=== PATIENT | female | born 1945 | race Hispanic/Latino ===

== ENCOUNTER → 2018-09-21 | Day surgery (SDC) | payer OTHER ==
[~2018-09-21] MED LIST: Iodixanol 320 MG/ML 200 ML BOTTLE IV ONE; Labetalol 5mg/ml (4ml) ONE; Midazolam 2 MG/2 ML VIAL ONE; Potassium Chloride 20 mEq/15 ml LIQ UD PO ONE
[2018-09-21 12:27] VITALS: BMI 47.2
[2018-09-21 15:00] LABS: ARTERIAL BLOOD GAS HCO3 22.1 mmol/L (21-28); ARTERIAL BLOOD GAS HEMOGLOBIN 8.9 g/dL (11.7-17.4); ARTERIAL BLOOD GAS O2 SAT 99.5 % (95-98); ARTERIAL BLOOD GAS PCO2 38 mm/Hg (35-45); ARTERIAL BLOOD GAS PH 7.36 (7.35-7.45); ARTERIAL BLOOD GAS PO2 142 mm/Hg (80-100); ARTERIAL BLOOD GAS TCO2 22.7 mmol/L (22-28)
[2018-09-21 15:05] LABS: VENOUS BLOOD GAS PCO2 38 mmHg (40-60); VENOUS BLOOD GAS PO2 34 mm/Hg (30-55); VENOUS BLOOD PH 7.32 (7.32-7.43)
--- NOTE | 2018-09-22 03:08 | CARDCATH ---
PROCEDURE DATE: 09/21/2018 INDICATIONS: Michelle Feldman is a 73-year-old female who was admitted to [facility] with one-week history of epigastric discomfort and multiple recurrent bouts of emesis. On presentation to the emergency room, she was noted to be in atrial fibrillation with rapid ventricular response. The patient was admitted for evaluation of possible underlying CAD as etiology of her presentation. Subsequently, she underwent a nuclear stress test showing transient ischemic dilatation for which she was transferred over to [facility] for further evaluation and treatment. She also had a history of new-onset dyspnea on exertion with minimal activity for which she underwent a complete heart catheterization. PROCEDURE PERFORMED: Complete heart catheterization with selective left and right coronary angiogram, left ventriculogram, 6-[place] right femoral arterial access, 7-[place] right femoral venous access, right heart catheterization hemodynamics. Right heart catheterization hemodynamics showed RA 25/26, mean of 23, RV of 54/15, RVEDP of 45, PA of 53/45, mean of 47 and wedge mean of 33 mmHg. Using thermodilution method, cardiac output was 3.8 with a cardiac intake of 1.9 and using the Henrik's equation, cardiac output was 5.4 with a cardiac index of 2.7. CORONARY ANATOMY: The patient has separate ostia of the LAD and left circumflex coronary artery. Left circumflex takes off from the posterior inferior segment of the aortic annulus. LAD nonobstructive gives off two medium-sized diagonal branches, proximal and mid distal 0%. Left circumflex runs in the AV groove, proximal and mid distal 0% gives off two medium-sized obtuse marginal branches. RCA is a large sized vessel, gives off PDA and PLV branches nonobstructive disease. Left ventricular ejection fraction 55% to 60%. EDP of 24. IMPRESSION: Nonobstructive coronary artery disease, normal left ventricular ejection fraction, elevated end-diastolic pressure and elevated filling pressure consistent with diastolic congestive heart failure with mild to moderate pulmonary hypertension. Nonobstructive coronary artery disease, moderate diastolic congestive heart failure, with moderate pulmonary hypertension. RECOMMENDATIONS: The patient is to continue aggressive medical management, risk factor modification.. Guidelines directed therapy for diastolic congestive heart failure and nonobstructive coronary artery disease along with moderate pulmonary hypertension. Desmond Alegria MD [facility] # [id number]
[2018-09-23 12:28] VITALS: RESP 16; O2SAT 100
== END | disposition home or self-care (01) ==
LOC: C.CATHLAB 11:28
PROVIDERS: ATTEND Internal Medicine Interventional Cardiology
DX: I25.10 Atherosclerotic heart disease of native coronary artery without angina pectoris (principal); I27.20 Pulmonary hypertension, unspecified; I48.91 Unspecified atrial fibrillation
CPT/HCPCS: 36600; 82803; 82948; 93460; 94770; 99152; 99153; C1714; C1760; C1769; C1887; C1893; C1894; J1644; J2250; J3010; Q9966